=== PATIENT | female | born 1980 | race Asian ===

== ENCOUNTER 2022-12-31 10:55 | Emergency (ER) | payer OTHER ==
[~2022-12-31] VITALS: Ht 177.8 cm; Wt 81.6 kg
[2022-12-31 11:54] LABS: PLATELET COUNT 254 K/uL (152-353)
[2022-12-31 12:00] VITALS: BP 163/106; TEMP 98.2
[2022-12-31 12:07] LABS: PARTIAL THROMBOPLASTIN TIME 25.7 SECONDS (23.9-36.7); POTASSIUM 3.7 mmol/L (3.6-5.2)
== END 2022-12-31 11:54 | disposition short-term general hospital (02) ==
LOC: ED 10:55
PROVIDERS: Family Medicine
DX: I61.8 Other nontraumatic intracerebral hemorrhage (principal); I63.9 Cerebral infarction, unspecified
CPT/HCPCS: 80053; 84484; 85027; 85610; 85730; 93005; 99285